=== PATIENT | male | born 1980 | race Caucasian/White ===

== ENCOUNTER 2016-08-20 18:05 | Observation (INO) | payer OTHER ==
[~2016-08-20] VITALS: Ht 185.4 cm; Wt 107.9 kg
[2016-08-20 19:02] LABS: HEMATOCRIT 41.6 % (38.0-50.0); MCH 29.8 PG (29.0-34.0); MCHC 33.4 G/DL (30.0-36.0); MCV 89.1 FL (86-99); MEAN PLAT.VOLUME 10.4 uM^3 (9.0-12.4); PLATELET COUNT 249 K/uL (156-360); RBC DIS.WIDTH-CV 12.1 % (11.8-14.6); RBC DIS.WIDTH-SD 39.2 % (39-53); RED BLOOD COUNT 4.67 M/uL (4.00-5.50); WHITE BLOOD COUNT 8.6 K/uL (4.1-10.2)
[2016-08-20 19:10] LABS: CHLORIDE 94 mEq/L (99-109); POTASSIUM 3.1 mEq/L (3.7-5.4); SODIUM 138 mEq/L (136-147)
[2016-08-20 19:12] LABS: GLUCOSE 85 mg/dL (70-99)
[2016-08-20 19:14] LABS: ANION GAP 11 MEQ/L (2-14); TOTAL BILIRUBIN 0.4 mg/dL (0.0-1.0)
[2016-08-20 19:16] LABS: ALKALINE PHOSPHATASE 136 IU/L (3-129); GFR ESTIMATE (CALCULATED) > 59 mL/min/
[2016-08-20 19:17] LABS: UREA NITROGEN (BUN) 7 mg/dL (9-23)
[2016-08-20 19:19] LABS: LIPASE 7 U/L (1.0-51.0)
[2016-08-20 22:01] LABS: MAGNESIUM 1.4 mg/dL (1.3-2.7)
[2016-08-20 23:52] LABS: TROP-I INTERPRETATION NEGATIVE; TROPONIN-I < 0.01 ng/mL (0.0-0.30)
[2016-08-20] MEDS ORDERED: PROZAC20 MG PO (23:56)
[2016-08-20] MEDS ORDERED: SEROQUEL400 MG PO (23:56)
[2016-08-20] MEDS ORDERED: BUSPAR15 MG PO (23:57)
[2016-08-20] MEDS ORDERED: AMBIEN10 MG PO (23:57)
[2016-08-20] MEDS ORDERED: METHADONE10 MG PO (23:58)
[2016-08-20] MEDS ORDERED: SOMA350 MG PO (23:58)
[2016-08-20] MEDS ORDERED: PRINIVIL10 MG PO (23:59)
[2016-08-20] MEDS ORDERED: OMEPRAZOLE40 M1 PO (23:59)
[2016-08-20] MEDS ORDERED: PROAIR HFA8.5 GM IH (23:59)
[2016-08-20] MEDS ORDERED: ATORVASTATIN CA10 MG PO (23:59)
[2016-08-20] MEDS ORDERED: METOPROLOL SUCC25 MG PO (23:59)
[2016-08-21] MEDS ORDERED: PRIMIDONE50 MG PO
[2016-08-21] MEDS ORDERED: LASIX40 MG PO
[2016-08-21] MEDS ORDERED: ADVAIR 250/501 DISK IH
[2016-08-21 02:42] VITALS: BP 152/88
[2016-08-21] MEDS ORDERED: MYSOLINE50 MG PO (02:53)
[2016-08-21 06:49] LABS: HEMATOCRIT 35.9 % (38.0-50.0); MCH 30.1 PG (29.0-34.0); MCHC 33.1 G/DL (30.0-36.0); MCV 90.9 FL (86-99); RBC DIS.WIDTH-SD 40.3 % (39-53); RED BLOOD COUNT 3.95 M/uL (4.00-5.50)
[2016-08-21 07:03] LABS: ALKALINE PHOSPHATASE 117 IU/L (3-129); ANION GAP 7 MEQ/L (2-14); CHLORIDE 95 MEQ/L (99-109); GFR ESTIMATE (CALCULATED) > 59 mL/min/; POTASSIUM 3.2 MEQ/L (3.7-5.4); SAMPLE HEMOLYSIS CHECK 0; SAMPLE ICTERIC CHECK 0; SAMPLE LIPEMIA CHECK 0; SODIUM 139 MEQ/L (136-147); TOTAL BILIRUBIN 0.3 MG/DL (0.0-1.0); UREA NITROGEN (BUN) 10 mg/dL (9-23)
[2016-08-21 07:04] LABS: GLUCOSE 108 mg/dL (70-99)
[2016-08-21 07:07] LABS: MEAN PLAT.VOLUME 10.5 uM^3 (9.0-12.4); PLAT.SUFFICIENCY ADEQUATE
[2016-08-21 07:16] LABS: PLATELET COUNT 162 K/uL (156-360)
[2016-08-21 08:30] VITALS: BP 153/88
[2016-08-21 10:08] LABS: TROP-I INTERPRETATION NEGATIVE; TROPONIN-I < 0.01 ng/mL (0.0-0.30)
[2016-08-21 11:10] VITALS: BP 149/75
[2016-08-21] MEDS ORDERED: FUROSEMIDE40 MG PO (13:51)
[2016-08-21 14:46] LABS: TROP-I INTERPRETATION NEGATIVE; TROPONIN-I < 0.01 ng/mL (0.0-0.30)
== END 2016-08-21 16:12 | disposition home or self-care (01) ==
LOC: EME 18:05 → EDOF 08-21 01:14 → 5WEST 08-21 02:33
PROVIDERS: Internal Medicine; Physician Assistant; Student in an Organized Health Care Education/Training Program
DX: R07.89 Other chest pain (principal); R94.31 Abnormal electrocardiogram [ECG] [EKG]; E87.6 Hypokalemia; E83.39 Other disorders of phosphorus metabolism; F11.20 Opioid dependence, uncomplicated; F17.200 Nicotine dependence, unspecified, uncomplicated; I10 Essential (primary) hypertension; G89.29 Other chronic pain; E78.00 Pure hypercholesterolemia, unspecified; F32.9 Major depressive disorder, single episode, unspecified; F41.9 Anxiety disorder, unspecified; F34.1 Dysthymic disorder; Z86.711 Personal history of pulmonary embolism; E66.9 Obesity, unspecified; Z68.31 Body mass index [BMI] 31.0-31.9, adult
CPT/HCPCS: 71020; 80053; 81003; 83690; 83735; 83880; 84100; 84484; 85027; 93005; 94640; 94799; 99202; 99281; 99285; G0378; J1644; J7030